=== PATIENT | male | born 1975 | race African-American/Black ===

== ENCOUNTER 2021-12-24 20:02 | Emergency (ER) | payer OTHER ==
[2021-12-25] MEDS ORDERED: NORCO 5-325 TA1 EACH PO (00:02)
[2021-12-25] MEDS ORDERED: MEDROL 4MG DOSEP4 MG PO (00:02)
[2021-12-25] MEDS ORDERED: VIBRAMYCIN100 MG PO (00:02)
== END 2021-12-25 00:40 | disposition home or self-care (01) ==
LOC: FER 20:02
DX: L02.412 Cutaneous abscess of left axilla (principal); J32.0 Chronic maxillary sinusitis; I10 Essential (primary) hypertension; F17.210 Nicotine dependence, cigarettes, uncomplicated; Z28.310 Unvaccinated for COVID-19
CPT/HCPCS: 99283; J1100